=== PATIENT | male | born 1960 | race Caucasian/White ===

== ENCOUNTER → 2023-09-23 | Outpatient (CLI) | payer BC ==
--- NOTE | 2023-09-23 09:52 | XR ---
EXAMINATION TYPE: XR chest 2V DATE OF EXAM: 09/23/2023 COMPARISON: NONE HISTORY: Shortness of breath TECHNIQUE: Frontal and lateral views of the chest are obtained. FINDINGS: Scattered senescent parenchymal changes noted. Hyperinflation compatible with COPD. No evidence for infiltrate. No evidence for atelectasis. Heart size is stable. Mediastinal structures are stable and grossly unremarkable. No evidence for hilar prominence. Degenerative changes dorsal spine. IMPRESSION: 1. No evidence for acute pulmonary disease.
[2023-09-23 09:57] LABS: Partial Thromboplastin Time 26.7 sec (22.0-30.0); Prothrombin Time 11.1 sec (10.0-12.5)
[2023-09-23 15:31] LABS: Appearance,Urine Turbid (Clear); Bilirubin,Urine Negative (Negative); Blood,Urine Negative (Negative); Color,Urine Yellow (Yellow); Ketones,Urine Negative (Negative); Nitrite,Urine Negative (Negative); PH, Urine 5.5; Specific Gravity,Urine 1.023 (1.001-1.030); Urobilinogen,Urine 0.2 E.U./DL
[2023-09-23 15:34] LABS: Bacteria,Urine None Seen (None Seen)
[2023-09-23 16:23] LABS: Basophils # (A) 0.02 X 10*3/uL (0.00-0.10); Basophils % (A) 0.4 %; HCT 45.2 % (39.6-50.0); HGB 14.9 g/dL (13.0-17.0); Lymphocytes # (A) 1.62 X 10*3/uL (0.90-5.00); Lymphocytes % (A) 32.9 %; MCH 30.7 pg (27.0-32.0); Mean Platelet Volume 11.9 FL (9.5-12.2); Monocytes # (A) 0.33 X 10*3/uL (0.20-1.00); Monocytes % (A) 6.7 %; NRBC Per 100 WBC 0 X 10*3/uL (0.00-0.01); Neutrophils # (A) 2.81 X 10*3/uL (1.80-7.70); Platelet Count 130 X 10*3/uL (140-440); RBC 4.86 X 10*6/uL (4.40-5.60); WBC 4.93 X 10*3/uL (4.50-10.00)
[2023-09-23 17:19] LABS: BUN/Creat Ratio 17.11 Ratio (12.00-20.00); Blood Urea Nitrogen 15.4 mg/dL (9.0-27.0); Carbon Dioxide 23.4 mmol/L (21.6-31.8); Chloride 106 mmol/L (96-109); Glucose 104 mg/dL (70-110); Potassium 4.3 mmol/L (3.5-5.5); Sodium 143 mmol/L (135-145)
== END | disposition home or self-care (01) ==
LOC: LABPAT 08:45
PROVIDERS: ATTEND Orthopaedic Surgery Orthopaedic Surgery of the Spine
DX: Z01.818 Encounter for other preprocedural examination (principal); M48.02 Spinal stenosis, cervical region; R06.02 Shortness of breath; Z22.322 Carrier or suspected carrier of Methicillin resistant Staphylococcus aureus
CPT/HCPCS: 71046; 80048; 81001; 85025; 85610; 85730; 86850; 86900; 86901; 87070

== ENCOUNTER 2023-10-02 07:30 | Inpatient (IN) | payer BC ==
[~2023-10-02 07:30] MED LIST: HYDROmorphone 0.5 MG/0.5 ML SYRINGE IVP PRN; LIDOCAINE 1% (10MG/ML) FOR IV START INTRADERMA PRN
[2023-10-02] MEDS: IV FLUID CONTINUATION 1,000 ML IV ONE ×2 (10:12→10:13)
[2023-10-02] MEDS: LACTATED RINGERS 1,000 ML IV SCH (10:18)
[2023-10-02] MEDS: ONDANSETRON 4 MG/2 ML VIAL IVP ONE (10:18)
[2023-10-02] MEDS: MIDAZOLAM 2 MG/2 ML VIAL IV STA (10:32)
--- NOTE | 2023-10-02 11:01 | P.ANPRN ---
Procedure Note - Anesthesia - Invasive Line Left Arterial Line Time Out Performed: Yes (1031) Date of Procedure: 10/02/23 Time of Procedure: 10:31 Location of Patient: PreOp Preparation: Sterile Prep, Sterile Dressing Arterial Line Location: Radial Ultrasound Used: No Narrative: Invasive line placement per sterile protocol utilized. 20G -2 inch arrow catheter used. Secured with suture and biopatch , and tegaderm applied.
[2023-10-02] MEDS: ceFAZolin 3 GM in SODIUM CHLORIDE 0.9% 100 ML IVPB PRN (11:08)
[2023-10-02] MEDS: THROMBIN (BOVINE) 5,000 UNIT VIAL TOPICAL ONE (11:38)
[2023-10-02] MEDS: LIDOCAINE 1%-EPI 1:100,000 20 ML VIAL SQ ONE (11:38)
[2023-10-02] MEDS: ceFAZolin 1,000 MG in SODIUM CHLORIDE 0.9% IRRIGATIO 1,000 ML IRRIGATION PRN (11:44)
--- NOTE | 2023-10-02 14:30 | XR ---
EXAMINATION TYPE: XR cervical spine 1V DATE OF EXAM: 10/02/2023 CLINICAL HISTORY: pain TECHNIQUE: Crosstable lateral view cervical spine COMPARISON: None. FINDINGS: Postoperative changes of ACDF with anterior fixation plate noted at the C3 level of the cau xiomy component is not seen with certainty. IMPRESSION: ACDF changes
[2023-10-02] MEDS ORDERED: HYDROmorphone 0.5 MG/0.5 ML SYRINGE IVP PRN (14:45)
[2023-10-02] MEDS ORDERED: HYDROcodone/APAP 5-325MG 1 EACH TAB PO PRN (14:45)
[2023-10-02] MEDS ORDERED: BENZOCAINE/MENTHOL LOZENG 1 EACH LOZENGE MUCOUS MEM PRN (14:45)
[2023-10-02] MEDS ORDERED: ONDANSETRON 4 MG/2 ML VIAL IVP PRN (14:46)
[2023-10-02] MEDS ORDERED: ACETAMINOPHEN TAB 500 MG TAB PO PRN (14:46)
[2023-10-02] MEDS ORDERED: CYCLOBENZAPRINE 10 MG TAB PO PRN (14:46)
--- NOTE | 2023-10-02 14:54 | P.OP ---
Date of Procedure: 10/02/23 Preoperative Diagnosis: Cervical myelopathy, cervical myelomalacia, severe cervical stenosis C3-4 C4-5 C5-6 C6-7, degenerative disc disease C3-4 C4-5 C5-6 C6-7, disc herniation C3-4 C4-5 C5-6 C6-7, large osteophytic spurring, upper extremity weakness, upper extreme radiculopathy Postoperative Diagnosis: Same Anesthesia: GETA Pathology: none sent Condition: stable Disposition: PACU Description of Procedure: BRIEF OPERATIVE NOTE Preoperative Diagnosis:Cervical myelopathy, cervical myelomalacia, severe cervical stenosis C3-4 C4-5 C5-6 C6-7, degenerative disc disease C3-4 C4-5 C5-6 C6-7, disc herniation C3-4 C4-5 C5-6 C6-7, large osteophytic spurring, upper extremity weakness, upper extreme radiculopathy Postoperative Diagnosis:Cervical myelopathy, cervical myelomalacia, severe cervical stenosis C3-4 C4-5 C5-6 C6-7, degenerative disc disease C3-4 C4-5 C5-6 C6-7, disc herniation C3-4 C4-5 C5-6 C6-7, large osteophytic spurring, upper extremity weakness, upper extreme radiculopathy Procedure: Anterior cervical decompression discectomy and fusion C3-4 C4-5 C5-6 C6-7 Removal of large anterior cervical osteophyte C4-5 C5-6 C6-7 placement of interbody allograft bone graft C3-4 C4-5 C5-6 C6-7 Application of anterior cervical plate [id number] Surgeon: Dr. Melton Machine Washer: Neymar ANTHONY who is present throughout the entire the case persistence during positioning, dissection, exposure, visualization, and all crucial elements of the case as well as closure. Anesthesia: General anesthesia Estimated blood loss: Approximately 100 cc Complications: None apparent Components implanted: K2M [place] anterior cervical plate system with plate and screws with the close interbody allograft bone graft 1 cc of DBX bone putty and 1 cc of Tisseel Disposition: To recovery room in good stable condition. OPERATIVE INDICATIONS The patient has had long-standing issues in their neck and upper extremities. He has been having worsening symptoms over the past several months. He has been developing some weakness and some difficulty with his gait and difficulty with coordination in his hands and fingers. He was found to have evidence of significant degenerative changes of the cervical spine and imaging showed severe cervical stenosis with myelomalacia correlating with the myelopathy he was experiencing. He had significant radiculopathy and was having myelopathic changes. We discussed the nature of condition and the issues involved with leaving the severe stenosis intact and the possibility of permanent damage a lready done to his spinal cord and nerves. I discussed with him the fact that he may have irreversible damage at his spinal cord and to his central nervous system. We felt that his situation would likely worsen if he were to leave the severe stenosis intact and he was having more and more symptoms and decreased ability to mobilize and function. The patient has been through conservative treatment. We discussed various treatment options including surgery, and the patient wishes to proceed with surgery We discussed the risk, patient's alternatives and benefits of surgery including but not limited to, risk of bleeding risk of infection, risk of need for further surgery, risk of decreased, loss of motion, muscle function, malunion nonunion, hardware failure, nerve damage, paralysis, heart attack, and . OPERATIVE SUMMARY After discussing all the risks, patient alternatives and benefits at length, the patient elected to proceed with surgical intervention, signed informed consent, and presented for their procedure. The patient was seen and examined in the preoperative holding area and the surgical site was marked. The patient was given antibiotics and brought to the operating room. The patient was positioned on the operating room table in a supine position being careful to pad any bony prominences and pressure points. The patient was sedated and intubated by anesthesia in standard fashion. Once the airway and C- spine were stabilized the patient's arms were padded and tucked at her side, with her shoulders gently taped. The head was placed in a donut pad with the ne ck in good neutral alignment and position. We were careful to maintain the patient's cervical spine and good neutral alignment and position throughout. The patient was prepped and draped in a normal standard fashion. An appropriate timeout and keystone protocol performed. We were able to proceed with the surgery. The local wound area was infiltrated with local anesthetic. An incision was made longitudinally on the right approximately 3-1/2 cm over the appropriate levels from C3-C7. Dissection was taken down subcutaneously to the level of the platysma which was split in line with its fibers. Dissection was taken with a carotid approach, with the trachea and esophagus medial and the carotid sheath laterally. We dissected down to the anterior surface of the vertebral bodies. Intraoperative x-ray was taken which showed a marker at the appropriate level at C4-5. With the appropriate level positively confirmed, we were able to proceed with discectomy at the appropriate levels of C3-4 C4-5 C5-6 and C6-7. All of the operative levels were exposed appropriately. The patient had all their twitches back, and there was no evidence of recurrent laryngeal issue. The wound was copiously irrigated and suctioned dry as had been done periodically throughout the case. At the appropriate level/levels, starting at C3-4 and then moving to C4-5 and then 5 6 and then 6 7 I established an annulotomy with an 11 blade scalpel. There were large anterior cervical osteophytes at each level particulates he 4-7 and they had removed with a rongeur and high-speed bur. A discectomy was performed with a combination of pituitary rongeurs, curettes, a high-speed bur, and [place] rongeurs. There are some evidence of some calcification and ossification of the posterior longitudinal ligament and a hard spur. This was very difficult to take down posteriorly behind the vertebral body but was able to get good decompression at each level. The posterior longitudinal ligament was taken down as were any posterior osteophytes. This gave good central and bilateral foraminal decompression. There is no evidence of any dural tear or leak. At C4-5 on the left there was some evidence of some dural abrasion. There is no gross leak or spilling of cerebrospinal fluid. I placed a small amount of Tisseel over the area. There is no evidence of leak. At this level and at each other level I pr epared the endplates appropriately. The endplates were prepared with a high- speed bur. With the endplates in good parallel position, I was able to size for the appropriate size interbody graft. The wound was irrigated and suctioned dry the graft was prepared and malleted into position. It had good alignment and position with the anterior surface flush with the anterior surface of the vertebral bodies. This was done similarly the appropriate levels first at C3-4 and then moving caudal to C4-5 and then C5-6 and then 6 7. With the grafts intact, I was able to measure and contour and appropriate sized plate. The plate was positioned at the midline over the appropriate levels from C3-C7. Screw holes were established with a hand drill and drill guide. Screws were placed in good alignment and position with excellent bony purchase. They were seated under the locking device. The construct was checked and found to be stable. Intraoperative x-ray was taken which showed good alignment and position of the implants at the appropriate levels. There was no evidence of any dural tear or leak. Good hemostasis was maintained. The wound was copiously irrigated and suctioned dry as had been done periodically throughout the case. The platysma was closed with absorbable suture. The subcutaneous tissue was closed. The subcuticular tissue was closed with absorbable suture. The wound was cleaned and dried and dressed appropriately. A soft cervical collar was placed appropriately. The patient was woken up by anesthesia, extubated, transferred back gently to their hospital bed and brought to the recovery room in good stable condition. The patient will be admitted to the hospital for appropriate postoperative care, medical management and monitoring. We will continue to follow them closely about the postoperative course.
[2023-10-02] MEDS: ceFAZolin 3 GM in SODIUM CHLORIDE 0.9% 100 ML IVPB SCH (18:29)
[2023-10-02] MEDS: SODIUM CHLORIDE 0.9% 1,000 ML IV SCH (18:29)
[2023-10-02] MEDS: HYDROmorphone 1 MG/ML 1 ML SYRINGE IVP PRN (19:57)
[2023-10-03 08:03] VITALS: BP 118/64; PULSE 60; RESP 20; TEMP 97.9
--- NOTE | 2023-10-03 09:16 | P.DS ---
Providers Date of admission: 10/02/23 09:18 Attending physician: Monica Melton Primary care physician: ANUJ Soares Hospital Course: The patient presented on the day of admission as per their operative note. He underwent anterior cervical decompression with discectomy and fusion at C3-4 C4- 5 C5-6 C6-7 for his severe cervical stenosis with cervical myelopathy and myelomalacia with upper extremity weakness. He feels his arms are doing somewhat more comfortable today he is mobilizing well and tolerating a soft diet. He has been able to void freely. His pain is controlled with oral medications. Physical Exam The incision site is clean dry and intact. There is no erythema no drainage. There is no purulence no evidence of infection. He is not having any skin reactions around the site. His neck is soft and supple Abdomen soft and nontender. Chest has good excursion with deep inspiration and expiration. The patient has active and passive range of motion intact at the upper and lower extremities. There is no acute change in neurologic status. Hospital Course Postoperative day #1 status post anterior cervical decompression with discectomy and fusion C3-4 C4-5 C5-6 C6-7 for his severe cervical stenosis with myelomalacia and myelopathy the patient has been making good progress postoperatively. They have completed the prophylactic antibiotics without any signs or symptoms of infection. The patient has been able to advance their diet, and is tolerating diet adequately. The pain was initially controlled with IV medications and is now controlled appropriately with oral medications. The patient has been able to increase their mobilization. The patient has progressed appropriately. I think they are in good stable condition for discharge today. They will be sent home with appropriate prescriptions. I answered their questions to the best of my ability in a language that they can understand and they are agreeable with the plan. They will follow up as directed. Patient Condition at Discharge: Good Plan - Discharge Summary Discharge Rx Participant: Yes New Discharge Prescriptions: New HYDROcodone/APAP 5-325MG [[place] 5-325] 1 tab PO Q4HR PRN 7 Days #42 tab PRN Reason: Pain No Action Atorvastatin [Lipitor] 40 mg PO QAM Losartan [Cozaar] 50 mg PO QAM Ibuprofen [Advil] 200 - 400 mg PO Q6H modafiniL [Provigil] 100 mg PO BID Discharge Medication List Atorvastatin [Lipitor] 40 mg PO QAM 09/30/23 [History] Ibuprofen [Advil] 200 - 400 mg PO Q6H 09/30/23 [History] Losartan [Cozaar] 50 mg PO QAM 09/30/23 [History] modafiniL [Provigil] 100 mg PO BID 09/30/23 [History] HYDROcodone/APAP 5-325MG [[place] 5-325] 1 tab PO Q4HR PRN 7 Days #42 tab 10/03/23 [Rx] Follow up Appointment(s)/Referral(s): Monica Melton DO [Doctor of Osteopathic Medicine] - 2 Weeks Discharge Disposition: HOME SELF-CARE
[2023-10-03] MEDS: ATORVASTATIN 40 MG TAB PO SCH (09:45)
[2023-10-03] MEDS: LOSARTAN 50 MG TAB PO SCH (09:45)
[2023-10-03] MEDS: modafiniL 100 MG TAB PO SCH (09:45)
== END 2023-10-03 11:31 | disposition home or self-care (01) | DRG 472 ==
LOC: EDSTATUS 07:30 → 2ORMAIN 09:18 → 4SSUR 16:11
PROVIDERS: ADMIT Orthopaedic Surgery Orthopaedic Surgery of the Spine; ATTEND Orthopaedic Surgery Orthopaedic Surgery of the Spine
PROC: 01N10ZZ Release Cervical Nerve, Open Approach (ICD-10-PCS; 2023-10-02)
PROC: 0RB30ZZ Excision of Cervical Vertebral Disc, Open Approach (ICD-10-PCS; 2023-10-02)
PROC: 4A11X4G Monitoring of Peripheral Nervous Electrical Activity, Intraoperative, External Approach (ICD-10-PCS; 2023-10-02)
PROC: 4A133B1 Monitoring of Arterial Pressure, Peripheral, Percutaneous Approach (ICD-10-PCS; 2023-10-02)
PROC: 4A133J1 Monitoring of Arterial Pulse, Peripheral, Percutaneous Approach (ICD-10-PCS; 2023-10-02)
PROC: 03HY32Z Insertion of Monitoring Device into Upper Artery, Percutaneous Approach (ICD-10-PCS; 2023-10-02)
PROC: 0RG20A0 Fusion of 2 or more Cervical Vertebral Joints with Interbody Fusion Device, Anterior Approach, Anterior Column, Open Approach (ICD-10-PCS; principal; 2023-10-02 10:45)
DX: M50.123 Cervical disc disorder at C6-C7 level with radiculopathy (principal); G99.2 Myelopathy in diseases classified elsewhere; M50.01 Cervical disc disorder with myelopathy, high cervical region; M48.02 Spinal stenosis, cervical region; R53.82 Chronic fatigue, unspecified; M79.12 Myalgia of auxiliary muscles, head and neck; M25.78 Osteophyte, vertebrae; E78.2 Mixed hyperlipidemia; G47.30 Sleep apnea, unspecified; Z85.828 Personal history of other malignant neoplasm of skin
CPT/HCPCS: 72020